=== PATIENT | female | born 1980 | race Caucasian/White ===

== ENCOUNTER 2023-05-20 19:41 | Emergency (ER) | payer OTHER, SELFPAY ==
[2023-05-20 19:52] VITALS: BP 158/98; PULSE 72; RESP 15; TEMP 36.6; O2SAT 100
--- NOTE | 2023-05-20 20:49 | ED.GENADULT ---
HPI - General Adult General Chief complaint: Recheck/Abnormal Lab/Rx Stated complaint: htn Time Seen by Provider: 05/20/23 20:20 History of Present Illness HPI narrative: this is a 42-year-old female with a history of anxiety and bipolar disorder presenting with concerns about her blood pressure. Patient has been increased anxiety lately and has noticed that it is associated with increases in her blood pressure. She has seen her primary care physician they recommended that she stop taking her blood pressure at home and come in for regular blood pressure checks. However her psychiatrist recommended that she could start taking clonidine for her anxiety which would also help her blood pressure. The patient has also gone to another ER where she has gotten different advice and now she is very confused. She is asymptomatic. Not in homicidal or suicidal. Exam Narrative: APPEARANCE: No apparent distress. Patient is polite during the interview Head: atraumatic. EYES: EOMI, NOSE: Atraumatic NECK: Trachea midline RESPIRATORY: No increased rate of breathing, clear to auscultation CARDIOVASCULAR: RRR, no peripheral edema ABDOMINAL: Non-distended MUSCULOSKELETAl: No obvious deformities NEURO: Alert. Moving 4/4 extremities SKIN:: Warm, dry. Normal color PSYCHIATRIC: Normal affect Course Vital Signs Vital signs: Vital Signs Temperature 97.8 F 05/20/23 19:52 Pulse Rate 72 05/20/23 19:52 Respiratory Rate 15 05/20/23 19:52 Blood Pressure 158/98 H 05/20/23 19:52 Pulse Oximetry 100 05/20/23 19:52 Oxygen Delivery Room Air 05/20/23 19:52 Temperature 97.8 F 05/20/23 19:52 Pulse Rate 72 05/20/23 19:52 Respiratory Rate 15 05/20/23 19:52 Blood Pressure 158/98 H 05/20/23 19:52 Pulse Oximetry 100 05/20/23 19:52 Oxygen Delivery Room Air 05/20/23 19:52 Medical Decision Making [facility] Narrative Medical decision making narrative: -Presentation: 42-year-old presenting with asymptomatic hypertension. 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 We have decided that she will follow her primary care's his physician's advice and not check her blood pressure at home and follow-up with them in 2 weeks for further management. -RX Vital Signs Vital Signs: Vital Signs Temperature 97.8 F 05/20/23 19:52 Pulse Rate 72 05/20/23 19:52 Respiratory Rate 15 05/20/23 19:52 Blood Pressure 158/98 H 05/20/23 19:52 Pulse Oximetry 100 05/20/23 19:52 Oxygen Delivery Room Air 05/20/23 19:52 Temperature 97.8 F 05/20/23 19:52 Pulse Rate 72 05/20/23 19:52 Respiratory Rate 15 05/20/23 19:52 Blood Pressure 158/98 H 05/20/23 19:52 Pulse Oximetry 100 05/20/23 19:52 Oxygen Delivery Room Air 05/20/23 19:52 Discharge Plan Discharge Clinical Impression: Asymptomatic hypertension Patient Disposition: Home, Self-Care Condition: Stable Instructions: Antibiotic Form, Hypertension (ED) Additional Instructions: Please follow-up with your primary care physician. Return emergency department if you develop chest pain difficulty breathing or slurred speech/or weakness. Follow-up/Referrals: PHYSICIAN NOT ON STAFF,NONSTAFF [Primary Care Provider] -
[2023-05-20 21:09] VITALS: BP 161/98; PULSE 65; RESP 14; O2SAT 100
== END 2023-05-20 21:16 | disposition home or self-care (01) ==
LOC: ANHED 21:06
PROVIDERS: Emergency Provider Emergency Medicine; PCP Physician Assistant
DX: I10 Essential (primary) hypertension (principal); F41.9 Anxiety disorder, unspecified
CPT/HCPCS: 99281